=== PATIENT | male | born 1990 | race Caucasian/White ===

== ENCOUNTER 2023-02-26 18:27 | Emergency (ER) | payer SELFPAY ==
[~2023-02-26] VITALS: Ht 172.7 cm; Wt 73.0 kg
[2023-02-26 18:30] VITALS: O2SAT 95
[2023-02-26] MEDS ORDERED: KETOROLAC 60MG/2ML VIAL IM ONE (19:30)
[2023-02-26] MEDS ORDERED: LIDOCAINE HCL/PF 1% 10 MG/ML 5ML VIAL INFIL ONE (19:30)
[2023-02-26] MEDS ORDERED: ACETAMINOPHEN 325MG TABLET PO ONE (19:30)
[2023-02-26 20:30] VITALS: BP 121/69; PULSE 84; RESP 18; TEMP 99.2
[2023-02-26] MEDS ORDERED: IBUP-2028 MT (21:35)
== END 2023-02-26 21:35 | disposition home or self-care (01) ==
LOC: ER 18:27
DX: S62.306A Unspecified fracture of fifth metacarpal bone, right hand, initial encounter for closed fracture (principal); F15.10 Other stimulant abuse, uncomplicated; X58.XXXA Exposure to other specified factors, initial encounter; Y93.89 Activity, other specified; Y92.89 Other specified places as the place of occurrence of the external cause; Y99.8 Other external cause status
CPT/HCPCS: 99284; 73130; 96372; J1885; J3490